=== PATIENT | female | born 1990 | race Hispanic/Latino ===

== ENCOUNTER 2017-09-03 03:00 | Emergency (ER) | payer BC, SELFPAY ==
[2017-09-03] MEDS ORDERED: Ibuprofen 800 MG TAB ONE (03:59)
[2017-09-03] MEDS ORDERED: Ondansetron HCl/PF 4 MG/2 ML Vial ONE (03:59)
[2017-09-03] MEDS ORDERED: Acetaminophen 500 MG TAB ONE (03:59)
[2017-09-03 04:36] LABS: #Lymphocytes 1.5 thou/uL (1.20-3.40); #Monocytes 0.9 thou/uL (0.11-0.59); #Neutrophils 8.7 thou/uL (1.40-6.50); %Basophils 0.3 % (0.0-1.0); %Eosinophils 0.1 % (0.0-10.0); %Lymphocytes 13.1 % (21.0-51.0); %Monocytes 7.6 % (0.0-10.0); Hematocrit 40.4 % (36.0-47.0); Mean Platelet Volume 8.5 fL (7.4-10.4); Red Blood Cell (RBC) Count 4.12 mill/uL (4.20-5.40); White Blood Cell (WBC) Count 11.1 thou/uL (4.8-10.8)
[2017-09-03 04:44] LABS: Anion Gap 11 mmol/L (10-20); BUN (Urea Nitrogen) 5 mg/dL (7.0-18.7); Calc. Creatinine Clearance 0 mL/min (70-130); Carbon Dioxide 28 mmol/L (22-29); Chloride 100 mmol/L (98-107); Estimated GFR-MDRD Greater than 90
[2017-09-03] MEDS ORDERED: Oseltamivir 75 MG CAP PO SCH (05:00)
== END 2017-09-03 05:13 | disposition home or self-care (01) ==
LOC: ERS 03:00
DX: J11.1 Influenza due to unidentified influenza virus with other respiratory manifestations (principal); E86.0 Dehydration
CPT/HCPCS: 80048; 85025; 87081; 87430; 96361; 96374; J2405

== ENCOUNTER 2018-01-06 21:02 | Emergency (ER) | payer SELFPAY ==
[2018-01-06] MEDS ORDERED: Ondansetron ODT 4 MG TAB ONE (22:57)
[2018-01-06] MEDS ORDERED: Metoclopramide HCl 10 MG TAB ONE (23:36)
[2018-01-06] MEDS ORDERED: Ketorolac Tromethamine 30 MG/ML VIAL ONE (23:36)
[2018-01-06] MEDS ORDERED: methylPREDNISolone Sod Succ/PF 125 MG/2 ML VIAL ONE (23:36)
[2018-01-07 00:06] LABS: Bilirubin Negative (Negative); Blood, Urine Small (Negative); Clarity CLOUDY (Clear); Glucose, Urine (Dipstick) Negative (Negative); Leukocyte Small (Negative); Nitrite Positive (Negative); Protein, Urine (Dipstick) Negative (Neg-Trace); Specific Gravity, Urine 1.024 (1.002-1.036); Urobilinogen 0.2 mg/dL (0.2-1.0)
[2018-01-07 00:09] LABS: Bacteria/HPF 4+ HPF (None Seen); Hyaline Casts/LPF 7-10 HYALINE CAST LPF (0-3 Hyaline); Pathc Cast-AUWi Flag 2.18 (0-2.49); RBC/HPF 0-3 HPF (0-3)
[2018-01-07 00:17] LABS: Pregnancy Test - Urine (BHCG) Negative (Negative); Pregu Control Background? CLEAR/WHITE (CLR/WHITE); Pregu Control Bar Appear? YES (CONTROL BAR); Specific Gravity 1.024 (1.002-1.036)
== END 2018-01-07 01:19 | disposition home or self-care (01) ==
LOC: ERS 21:02
DX: G43.909 Migraine, unspecified, not intractable, without status migrainosus (principal); N39.0 Urinary tract infection, site not specified
CPT/HCPCS: 81003; 81015; 81025; 96374; 96375; J1885; J2930; Q0162

== ENCOUNTER 2018-01-12 10:07 | Emergency (ER) | payer SELFPAY ==
[2018-01-12] MEDS ORDERED: Promethazine HCl 25 MG/ML VIAL ONE (11:03)
[2018-01-12] MEDS ORDERED: diphenhydrAMINE 50 MG/ML VIAL ONE (11:03)
[2018-01-12 11:37] LABS: Bilirubin Negative (Negative); Blood, Urine Negative (Negative); Clarity CLOUDY (Clear); Glucose, Urine (Dipstick) Negative (Negative); Leukocyte Trace (Negative); Nitrite Negative (Negative); Protein, Urine (Dipstick) Negative (Neg-Trace); pH, Urine 7.5 (5.0-9.0)
[2018-01-12 11:39] LABS: Bacteria/HPF Rare-Few HPF (None Seen); Hyaline Casts/LPF 4-6 HYALINE CAST LPF (0-3 Hyaline); Pathc Cast-AUWi Flag 1.16 (0-2.49); WBC/HPF 0-3 HPF (0-3)
[2018-01-12] MEDS ORDERED: Ketorolac Tromethamine 30 MG/ML VIAL ONE (12:40)
== END 2018-01-12 12:48 | disposition home or self-care (01) ==
LOC: ERS 10:07
DX: G43.909 Migraine, unspecified, not intractable, without status migrainosus (principal); Z79.899 Other long term (current) drug therapy
CPT/HCPCS: 81003; 81015; 96365; 96375; J1200; J1885; J2550

== ENCOUNTER 2018-04-25 22:16 | Emergency (ER) | payer SELFPAY ==
[2018-04-25 22:37] LABS: Pregnancy Test - Urine (BHCG) Negative (Negative); Pregu Control Background? CLEAR/WHITE (CLR/WHITE); Pregu Control Bar Appear? YES (CONTROL BAR)
[2018-04-25 22:38] LABS: Bilirubin Small (Negative); Blood, Urine Moderate (Negative); Clarity CLEAR (Clear); Glucose, Urine (Dipstick) Negative (Negative); Leukocyte Negative (Negative); Nitrite Negative (Negative); Protein, Urine (Dipstick) Negative (Neg-Trace); Specific Gravity, Urine 1.031 (1.002-1.036); pH, Urine 5.5 (5.0-9.0)
[2018-04-25 22:39] LABS: Pathc Cast-AUWi Flag 1.01 (0-2.49); Squamous Epithelial 0-3 HPF (0-3)
[2018-04-25 22:40] LABS: Specific Gravity 1.031 (1.002-1.036); Yeast-AUWi Flag 31.6 (0-25.0)
[2018-04-25 22:42] LABS: Hemoglobin 12.3 g/dL (12.0-16.0); Mean Corpuscular HGB CONC 33.5 g/dL (32.0-36.0); Mean Corpuscular Hemoglobin 32.5 pg (27.0-31.0); Mean Corpuscular Volume 96.8 fL (78.0-98.0); Mean Platelet Volume 8.3 fL (7.4-10.4); Platelet Count 211 thou/uL (130-400); RBC Distribution Width 11.2 % (11.5-14.5); Red Blood Cell (RBC) Count 3.78 mill/uL (4.20-5.40); White Blood Cell (WBC) Count 8.6 thou/uL (4.8-10.8)
[2018-04-25 22:48] LABS: Bacteria/HPF 1+ HPF (None Seen)
[2018-04-25 22:49] LABS: Hyaline Casts/LPF 0-3 HYALINE CAST LPF (0-3 Hyaline)
[2018-04-25 22:57] LABS: Band 1 % (5-11); Eosinophils 1 % (0-10); Lymphocytes 45 % (21-51); MDiff Complete? YES; Monocytes 6 % (0-10); Neutrophil 47 % (42-75); PLT Morphology Comment Appears Adequate; RBC Morphology Normal
[2018-04-25 23:00] LABS: ALT (SGPT) 12 U/L (8-55); AST (SGOT) 16 U/L (5-34); Albumin 4.3 g/dL (3.5-5.0); Alkaline Phosphatase 49 U/L (40-150); Anion Gap 11 mmol/L (10-20); BUN (Urea Nitrogen) 8 mg/dL (7.0-18.7); Bilirubin, Total 0.4 mg/dL (0.2-1.2); Calc. Creatinine Clearance 0 mL/min (70-130); Carbon Dioxide 25 mmol/L (22-29); Chloride 107 mmol/L (98-107); Estimated GFR-MDRD Greater than 90; Globulin 2.6 g/dL (2.4-3.5); Glucose 90 mg/dL (70-105); Potassium 3.4 mmol/L (3.5-5.1); Protein, Total 6.9 g/dL (6.0-8.3); Sodium 140 mmol/L (136-145)
[2018-04-26] MEDS ORDERED: Ketorolac Tromethamine 60 MG/2 ML VIAL ONE (00:43)
== END 2018-04-26 01:13 | disposition home or self-care (01) ==
LOC: ERS 22:16
DX: N39.0 Urinary tract infection, site not specified (principal)
CPT/HCPCS: 36415; 80053; 81003; 81015; 81025; 85025; 96372; J1885

== ENCOUNTER 2018-10-14 10:30 | Outpatient (CLI) | payer MEDICAID ==
--- NOTE | 2018-10-14 13:06 | ULT ---
PELVIC SONOGRAM TRANSABDOMINAL AND TRANSVAGINAL IMAGING WITH DUPLEX EVALUATION: HISTORY: Dyspareunia. FINDINGS: Urinary bladder has a normal appearance. Uterus has a homogeneous echotexture and is 7.5 cm. The en dometrium is 0.6 cm. Right ovary is 3.8 cm and left 2.7 cm. Each has a normal sonographic appearance with good color and spectral Doppler flow. No free fluid within the pelvis. IMPRESSION: Normal pelvic sonogram. POS: [facility]
== END 2018-10-14 10:31 | disposition home or self-care (01) ==
LOC: BICULT 10:30
PROVIDERS: ATTEND Nurse Practitioner Women's Health
DX: R10.2 Pelvic and perineal pain (principal)
CPT/HCPCS: 76856

== ENCOUNTER 2019-01-18 12:37 | Emergency (ER) | payer MEDICAID ==
[2019-01-18] MEDS ORDERED: Ondansetron ODT 8 MG TAB ONE (14:10)
[2019-01-18] MEDS ORDERED: Acetaminophen 325 MG TAB ONE (14:10)
[2019-01-18 14:32] LABS: Bilirubin Negative (Negative); Blood, Urine Trace (Negative); Clarity CLOUDY (Clear); Glucose, Urine (Dipstick) Negative (Negative); Leukocyte Large (Negative); Nitrite Positive (Negative); Protein, Urine (Dipstick) Negative (Neg-Trace); Specific Gravity, Urine 1.011 (1.002-1.036)
[2019-01-18 14:34] LABS: Pregnancy Test - Urine (BHCG) POSITIVE (Negative); Pregu Control Background? CLEAR/WHITE (CLR/WHITE); Pregu Control Bar Appear? YES (CONTROL BAR); Specific Gravity 1.011 (1.002-1.036)
[2019-01-18 14:35] LABS: Bacteria/HPF 2+ HPF (None Seen); Hyaline Casts/LPF 4-6 HYALINE CAST LPF (0-3 Hyaline); Pathc Cast-AUWi Flag 1.36 (0-2.49); Squamous Epithelial 0-3 HPF (0-3)
== END 2019-01-18 15:17 | disposition home or self-care (01) ==
LOC: ERS 12:37
DX: N30.00 Acute cystitis without hematuria (principal); Z32.01 Encounter for pregnancy test, result positive
CPT/HCPCS: 81003; 81015; 81025; 99283

== ENCOUNTER 2019-05-09 14:42 | Outpatient (CLI) | payer OTHER ==
--- NOTE | 2019-05-09 15:37 | ULT ---
OB ULTRASOUND: 05/09/19 HISTORY: anatomy. FINDINGS: A single live intrauterine gestational is seen with measurements corresponding to an estimated gestat ional age of 22 weeks, 0 days and MICHAEL at 09/12/19. The estimated weight measures 448 grams or 1 lb. (12th percentile by Hadlock criteria). measurements are as follows: BPD 5.30 cm 22 weeks, 1 day HC 19.51 cm 21 weeks, 6 days AC 16.75 cm 21 weeks, 6 days FL 3.58 cm 21 weeks, 5 days heart rate measures 136 beats per minute. Placenta is posteriorly located without evidence of p lacenta previa. SABRINA measures 12.8 cm. Cervical length measures 3.6 cm. A three vessel cord, cord insertion, kidneys, bladder, stomach, four chambered heart, lateral v entricles, cerebellum, spine, lips/nose, upper and lower extremities are visualized. No definite feta l anomalies are seen. IMPRESSION: Single live IUP of 22 weeks estimated gestational age and MICHAEL at 09/12/19. POS: [facility]
== END 2019-05-09 14:43 | disposition home or self-care (01) ==
LOC: BICULT 14:42
PROVIDERS: ATTEND Family Medicine
DX: Z34.82 Encounter for supervision of other normal pregnancy, second trimester (principal); Z3A.22 22 weeks gestation of pregnancy
CPT/HCPCS: 76805

== ENCOUNTER 2019-05-24 12:13 | Day surgery (SDC) | payer OTHER ==
[2019-05-24 12:56] VITALS: BMI 24.7
[2019-05-24] MEDS ORDERED: hydrALAZINE 20 MG/ML VIAL SLOW IVP PRN (14:10)
--- NOTE | 2019-05-24 15:06 | HP ---
PRIMARY OB: Mitesh Espino MD CHIEF COMPLAINT: Pelvic pain. HISTORY OF PRESENT ILLNESS: The patient is a 29-year-old, G2, P1 female with an intrauterine at 24 weeks and 5 days presenting to Labor and Delivery with a 3-week history of pelvic pain and a uterine contraction that she felt about 5 o'clock this morning. The patient reports that she has had this sharp pelvic pain now for 3 weeks. It is worse with activity and movement and rolling over in bed. She reports that yesterday she was carrying some files at work and has noted that activity made it worse. The patient denies intercourse for 2 weeks. She denies bleeding or leakage of fluid. Again, she reports that she has had a single uterine contraction this morning about 5 o'clock, making her belly really hard, but has had no other contractions that she is aware of since then. The patient has not taken any pain medication or has not had any other interventions. The patient denies fever, fall, abdominal trauma, chest pain, shortness of breath, nausea, vomiting , diarrhea, constipation, hip problems, knee problems, muscle weakness, new rashes , leakage of fluid, vaginal bleeding, or urinary urgency or frequency. PAST MEDICAL HISTORY: Migraines, last migraine was several weeks ago. Anxiety and depression. PAST SURGICAL HISTORY: Negative. ALLERGIES: NO KNOWN DRUG ALLERGIES. MEDICATIONS: vitamins. REVIEW OF SYSTEMS: Per HPI. OB LABS: Unavailable at the time of dictation. SOCIAL HISTORY: Denies drug, alcohol, or tobacco use. PHYSICAL EXAMINATION: VITAL SIGNS: Blood pressure 108/60, heart rate of 85, respiratory rate of 16, and saturating 97% on room air. GENERAL: She appears to be in no acute distress. She is alert, oriented, cooperative, and pleasant to interact with. HEAD: Normocephalic and atraumatic. LUNGS: Clear to auscultation bilaterally. HEART: She has regular rate and rhythm. ABDOMEN: Gravid and soft. She has minimal tenderness to the fundus, but has exquisite tenderness with deviation of the uterus to the right more so than the left, recreating her pain she has been experiencing at home. EXTREMITIES: Nontender and nonedematous. : Exam has been deferred. heart tracing shows the fetus is difficult to trace at 24 weeks, but in the 140s with moderate long-term variability. No decelerations visible. Tocometer is free of contractions. ASSESSMENT AND PLAN: The patient is a 29-year-old female with a 3-week history of musculoskeletal pains of . There is no evidence of labor at this time. The patient has been counseled to take two Tylenol 3 times a day. To attempt to find a support for her belly, this may give her desired comfort, soaking in a deep tub may also allow her to get some comfort or in a pool. Fetus is reassuring for gestational age. She has an appointment next week with Dr. Espino. We have encouraged that she keep. Job ID: [id number] [facility]
== END 2019-05-24 14:00 | disposition home or self-care (01) ==
LOC: L&D/OP 12:13
PROVIDERS: ATTEND Family Medicine
DX: O26.892 Other specified pregnancy related conditions, second trimester (principal); R10.2 Pelvic and perineal pain; O99.352 Diseases of the nervous system complicating pregnancy, second trimester; G43.909 Migraine, unspecified, not intractable, without status migrainosus; Z3A.24 24 weeks gestation of pregnancy
CPT/HCPCS: 99282

== ENCOUNTER 2019-09-03 18:00 | Inpatient (IN) | payer OTHER ==
[~2019-09-03 18:00] MED LIST: Bupivacaine 0.25% HCL 30 ML VIAL ONE; Bupivacaine HCl 0.5%/Epinephrine 1:200,000/PF 30 ml Vial ONE; Terbutaline Sulfate 1 MG/ML VIAL ONE
[2019-09-03 18:32] VITALS: BMI 27.8
[2019-09-03] MEDS ORDERED: Ibuprofen 800 MG TAB PO PRN (18:33)
[2019-09-03] MEDS ORDERED: Promethazine HCl 25 MG/ML VIAL IM PRN (18:33)
[2019-09-03] MEDS ORDERED: Carboprost 250 MCG/ML AMP IM PRN (18:33)
[2019-09-03] MEDS ORDERED: Misoprostol 200 MCG TAB PR PRN (18:33)
[2019-09-03] MEDS ORDERED: Methylergonovine 0.2 MG/ML VIAL IM PRN (18:33)
[2019-09-03] MEDS ORDERED: HYDROcodone/Acetaminophen 5/325 mg Tablet PO PRN (18:33)
[2019-09-03] MEDS ORDERED: Diphenoxylate HCl/Atropine Tablet PO PRN (18:33)
[2019-09-03] MEDS ORDERED: hydrALAZINE 20 MG/ML VIAL SLOW IVP PRN (18:33)
[2019-09-03] MEDS ORDERED: Ondansetron PF 4 MG/2 ML Vial IVP PRN (18:33)
[2019-09-03] MEDS ORDERED: NS w/ Oxytocin 10 units 500 ML IV SCH ×2 (18:33)
[2019-09-03] MEDS ORDERED: NS / Oxytocin 40 units/1000ml 1,000 ML IV PRN (18:33)
[2019-09-03 19:40] LABS: Hemoglobin 10.1 g/dL (12.0-16.0); Mean Corpuscular HGB CONC 33.5 g/dL (32.0-36.0); Mean Corpuscular Hemoglobin 27.2 pg (27.0-31.0); Mean Corpuscular Volume 81.1 fL (78.0-98.0); Mean Platelet Volume 9.8 fL (7.4-10.4); Platelet Count 223 thou/uL (130-400); RBC Distribution Width 14.4 % (11.5-14.5); White Blood Cell (WBC) Count 10.3 thou/uL (4.8-10.8)
[2019-09-03] MEDS: Misoprostol 100 MCG TAB PO SCH (19:41)
[2019-09-03] MEDS: Lactated Ringer's 1,000 ML IV SCH (19:43)
[2019-09-03 20:20] LABS: HBSAg Index 0.19 S/CO (0-0.99); Hep B Surf Ag Non-Reactive S/CO (NonReactive); Syphilis Antibody Nonreactive (Nonreactive); Syphilis Antibody Index 0.04 S/CO (<1.00 Non-Reactive)
[2019-09-03] MEDS ORDERED: Penicillin G Potassium 5 MILL.UNITS in Sodium Chloride 0.9% 100 ML IVPB SCH (22:30)
[2019-09-03] MEDS ORDERED: Ampicillin 2 GM in Sodium Chloride 0.9% 100 ML IVPB SCH (22:30)
[2019-09-03] MEDS ORDERED: hydrOXYzine Pamoate 25 mg Capsule PO SCH (22:30)
[2019-09-04] MEDS ORDERED: Penicillin G Potassium 5 MILL.UNITS VIAL ONE (00:03)
[2019-09-04] MEDS: Misoprostol 100 MCG TAB PO SCH ×3 (01:14→21:36)
[2019-09-04] MEDS: Butorphanol Tartrate 1 MG/ML VIAL SLOW IVP PRN ×2 (02:03→07:02)
[2019-09-04] MEDS ORDERED: Penicillin G 2.5 MILL.units 50 ML ONE ×2 (05:01→08:52)
[2019-09-04] MEDS: Lactated Ringer's 1,000 ML IV SCH ×2 (05:08→08:45)
[2019-09-04] MEDS ORDERED: diphenhydrAMINE 50 MG/ML VIAL IVP PRN (08:44)
[2019-09-04] MEDS ORDERED: Naloxone HCl 0.4 mg/ml Vial IVP PRN ×2 (08:44)
[2019-09-04] MEDS ORDERED: Ondansetron PF 4 MG/2 ML Vial IVP PRN ×2 (08:44→11:34)
[2019-09-04] MEDS ORDERED: ePHEDrine/0.9% NaCl/PF SYRINGE 50 mg/10 ml SLOW IVP PRN (08:44)
[2019-09-04] MEDS ORDERED: Lactated Ringer's 500 ML IV PRN (08:44)
[2019-09-04] MEDS ORDERED: Acetaminophen 325 MG TAB PO PRN (08:44)
[2019-09-04] MEDS ORDERED: Promethazine HCl 25 MG/ML VIAL IM PRN ×2 (08:44→11:34)
[2019-09-04] MEDS ORDERED: Communication Order-Pharmacy FS PRN (08:45)
[2019-09-04] MEDS ORDERED: Fentanyl 4 mcg/Bupivacaine 0.1% Cassette 100 ML EPIDURAL SCH (08:45)
[2019-09-04] MEDS: Penicillin G Potassium 2.5 MILL.UNITS in Sodium Chloride 0.9% 50 ML IVPB SCH ×2 (08:56→21:38)
[2019-09-04] MEDS ORDERED: FLU VACC QS2019-20(6MOS UP)/PF 60 MCG/0.5 ML SYRINGE IM ONE (09:00)
[2019-09-04] MEDS ORDERED: Lidocaine 1% (PF) 30 ML VIAL ONE (09:10)
[2019-09-04] MEDS ORDERED: Misoprostol 200 MCG TAB ONE (09:10)
[2019-09-04] MEDS ORDERED: Fentanyl 4 mcg/Bup 0.1% Cadd 100 ML ONE (10:47)
[2019-09-04] MEDS: AMPicillin 1 GM in Sodium Chloride 0.9% 100 ML IVPB SCH (11:13)
[2019-09-04] MEDS ORDERED: diphenhydrAMINE 25 MG CAP PO PRN (11:34)
[2019-09-04] MEDS ORDERED: Bisacodyl 10 MG SUPP PR PRN (11:34)
[2019-09-04] MEDS ORDERED: HYDROcodone/Acetaminophen 5/325 mg Tablet PO PRN ×2 (11:34)
[2019-09-04] MEDS ORDERED: NS / Oxytocin 40 units/1000ml 1,000 ML IV SCH (11:34)
[2019-09-04] MEDS ORDERED: Benzocaine-Menthol 82.5 ML CAN TOP PRN (11:34)
[2019-09-04] MEDS ORDERED: Milk Of Magnesia 30 ML UDCUP PO PRN (11:34)
[2019-09-04] MEDS ORDERED: hydrALAZINE 20 MG/ML VIAL SLOW IVP PRN (11:34)
[2019-09-04] MEDS: Ibuprofen 800 MG TAB PO SCH ×2 (14:31→22:01)
[2019-09-04] MEDS: Ferrous Sulfate 325 MG TAB PO SCH (16:14)
[2019-09-04] MEDS: Docusate Calcium (SURFAK) 240 MG CAP PO SCH (20:35)
[2019-09-05 05:46] LABS: Hemoglobin 8.8 g/dL (12.0-16.0); Mean Corpuscular HGB CONC 32.5 g/dL (32.0-36.0); Mean Corpuscular Hemoglobin 27.1 pg (27.0-31.0); Mean Corpuscular Volume 83.5 fL (78.0-98.0); Mean Platelet Volume 9.8 fL (7.4-10.4); Platelet Count 178 thou/uL (130-400); RBC Distribution Width 14.2 % (11.5-14.5); Red Blood Cell (RBC) Count 3.23 mill/uL (4.20-5.40); White Blood Cell (WBC) Count 11.6 thou/uL (4.8-10.8)
[2019-09-05] MEDS: Ibuprofen 800 MG TAB PO SCH (05:55)
[2019-09-05] MEDS: Docusate Calcium (SURFAK) 240 MG CAP PO SCH (08:35)
[2019-09-05] MEDS: Ferrous Sulfate 325 MG TAB PO SCH (08:35)
[2019-09-05] MEDS ORDERED: Prenatal Vitamin 1 TAB PO SCH (09:00)
[2019-09-05 11:03] VITALS: BP 129/59; TEMP 98.4
[2019-09-05] MEDS ORDERED: Adacel (T-DAP) 0.5 ML SYRINGE IM ONE (11:34)
== END 2019-09-05 13:50 | disposition home or self-care (01) | DRG 807 ==
LOC: L&D 18:00 → EEVIPCON 18:00 → 3SW 09-04 12:13
PROVIDERS: ADMIT Family Medicine; ATTEND Family Medicine
PROC: 10907ZC Drainage of Amniotic Fluid, Therapeutic from Products of Conception, Via Natural or Artificial Opening (ICD-10-PCS; 2019-09-03)
PROC: 3E0P7VZ Introduction of Hormone into Female Reproductive, Via Natural or Artificial Opening (ICD-10-PCS; 2019-09-03)
PROC: 10E0XZZ Delivery of Products of Conception, External Approach (ICD-10-PCS; principal; 2019-09-04)
PROC: 0HQ9XZZ Repair Perineum Skin, External Approach (ICD-10-PCS; 2019-09-04)
DX: O99.824 Streptococcus B carrier state complicating childbirth (principal); Z3A.39 39 weeks gestation of pregnancy; Z37.0 Single live birth; Z28.82 Immunization not carried out because of caregiver refusal; O70.0 First degree perineal laceration during delivery
CPT/HCPCS: 36415; 36416; 51702; 85027; 86780; 86850; 86900; 86901; 87340; J0595; J0670; J2001; J2540; J2590; J3105; J3490; Q0177; S0020

== ENCOUNTER 2019-09-15 16:44 | Emergency (ER) | payer OTHER ==
[2019-09-15] MEDS ORDERED: Acetaminophen 500 MG TAB ONE (18:51)
[2019-09-15] MEDS ORDERED: cefTRIAXone\\ROCEPHIN 1 GM VIAL ONE (18:52)
[2019-09-15] MEDS ORDERED: Ondansetron PF 4 MG/2 ML Vial ONE (18:52)
[2019-09-15] MEDS ORDERED: Sodium Chloride 0.9% 100 ML ONE (18:52)
[2019-09-15] MEDS ORDERED: Ketorolac Tromethamine 30 MG/ML VIAL ONE (18:52)
[2019-09-15 19:02] LABS: #Lymphocytes 2.1 thou/uL (1.20-3.40); #Monocytes 0.4 thou/uL (0.11-0.59); #Neutrophils 5.2 thou/uL (1.40-6.50); %Basophils 0.5 % (0.0-1.0); %Eosinophils 0.3 % (0.0-10.0); %Lymphocytes 26.8 % (21.0-51.0); %Monocytes 5.2 % (0.0-10.0); %Neutrophils 67.1 % (42.0-75.0); Hemoglobin 13.1 g/dL (12.0-16.0); Mean Corpuscular HGB CONC 32.5 g/dL (32.0-36.0); Mean Corpuscular Hemoglobin 26.9 pg (27.0-31.0); Platelet Count 297 thou/uL (130-400); RBC Distribution Width 15.6 % (11.5-14.5); Red Blood Cell (RBC) Count 4.87 mill/uL (4.20-5.40); White Blood Cell (WBC) Count 7.7 thou/uL (4.8-10.8)
[2019-09-15 19:23] LABS: ALT (SGPT) 29 U/L (8-55); AST (SGOT) 22 U/L (5-34); Alkaline Phosphatase 125 U/L (40-110); Anion Gap 13 mmol/L (10-20); BUN (Urea Nitrogen) 7 mg/dL (7.0-18.7); Bilirubin, Total 0.4 mg/dL (0.2-1.2); Calc. Creatinine Clearance 0 mL/min (70-130); Calcium 8.9 mg/dL (7.8-10.44); Carbon Dioxide 27 mmol/L (22-29); Chloride 103 mmol/L (98-107); Estimated GFR-MDRD Greater than 90; Globulin 3.7 g/dL (2.4-3.5); Glucose 95 mg/dL (70-105); Potassium 3.7 mmol/L (3.5-5.1); Protein, Total 7.7 g/dL (6.0-8.3); Sodium 139 mmol/L (136-145)
[2019-09-15] MEDS ORDERED: metroNIDAZOLE 250 MG TAB ONE (19:51)
[2019-09-15] MEDS ORDERED: Clindamycin/D5W 600 mg/50 ml Premix Bag ONE (19:51)
[2019-09-15] MEDS ORDERED: Clindamycin 150 MG CAP ONE (19:53)
[2019-09-15 20:13] LABS: Bacteria/HPF 1+ HPF (None Seen); Bilirubin Negative (Negative); Blood, Urine 3+ (Negative); Clarity Turbid (Clear); Glucose, Urine (Dipstick) Normal (Negative); Leukocyte 500 Leu/uL (Negative); Nitrite Negative (Negative); Protein, Urine (Dipstick) 30 mg/dL (Neg-Trace); Urobilinogen Normal mg/dL (Less than 2); WBC/HPF Greater than 50 HPF (0-3)
--- NOTE | 2019-09-15 20:22 | ULT ---
PELVIC ULTRASOUND: 09/15/19 HISTORY: x10 days with fever. Real time imaging of the pelvis was obtained transabdominally. This shows a appearance to the uterus. It measures 12.6 cm in length. There is some fluid within the endometrium measuring 7 mm in thickness. I do not see any retained products of conception. The right and left ovaries are both difficult to visualize but appear unremarkable. DOPPLER EVALUATION WITH SPECTRAL ANALYSIS: Normal flow is shown to the adnexal regions. No free fluid demonstrated. IMPRESSION: appearance of the uterus. Fluid within the endometrial cavity is noted. I do not appreciat e any retained products of conception. POS: [facility]
== END 2019-09-15 20:28 | disposition home or self-care (01) ==
LOC: ERS 16:44
DX: O86.12 Endometritis following delivery (principal)
CPT/HCPCS: 36415; 76856; 80053; 81003; 81015; 83605; 85025; 87040; 87804; 96365; 96375; J0696; J1885; J2405; J3490

== ENCOUNTER 2020-03-24 08:52 | Emergency (ER) | payer OTHER ==
[2020-03-25 11:41] LABS: SARS-CoV-2 MS2 Positive; SARS-CoV-2 N Gene Negative; SARS-CoV-2 S Gene Negative; SARS-CoV-2 orf1ab Negative
== END 2020-03-24 09:40 | disposition home or self-care (01) ==
LOC: ERS 08:52
DX: Z20.828 Contact with and (suspected) exposure to other viral communicable diseases (principal); Z79.899 Other long term (current) drug therapy; Z3A.23 23 weeks gestation of pregnancy
CPT/HCPCS: 87635; 99283; U0003

== ENCOUNTER 2020-04-10 13:04 | Emergency (ER) | payer OTHER ==
[2020-04-11 14:02] LABS: SARS-CoV-2 MS2 Positive; SARS-CoV-2 N Gene Negative; SARS-CoV-2 S Gene Negative; SARS-CoV-2 by NAA Not Detected (NotDetected); SARS-CoV-2 orf1ab Negative
== END 2020-04-10 13:35 | disposition home or self-care (01) ==
LOC: ERS 13:04
DX: O99.519 Diseases of the respiratory system complicating pregnancy, unspecified trimester (principal); J02.9 Acute pharyngitis, unspecified; Z20.828 Contact with and (suspected) exposure to other viral communicable diseases; Z3A.00 Weeks of gestation of pregnancy not specified
CPT/HCPCS: 87635; 99283; U0003

== ENCOUNTER 2020-07-08 08:11 | Outpatient (CLI) | payer OTHER ==
[2020-07-08 16:35] LABS: SARS-CoV-2 MS2 Positive; SARS-CoV-2 N Gene Negative; SARS-CoV-2 S Gene Negative; SARS-CoV-2 by NAA Not Detected (NotDetected); SARS-CoV-2 orf1ab Negative
== END 2020-07-08 08:12 | disposition home or self-care (01) ==
LOC: LABBT 08:11
PROVIDERS: ATTEND Family Medicine
DX: Z20.828 Contact with and (suspected) exposure to other viral communicable diseases (principal)
CPT/HCPCS: 87635; U0003

== ENCOUNTER 2020-07-10 19:30 | Inpatient (IN) | payer OTHER ==
[2020-07-10 20:38] VITALS: BMI 27.8
[2020-07-10] MEDS ORDERED: Misoprostol 200 MCG TAB PR PRN (20:56)
[2020-07-10] MEDS ORDERED: Carboprost 250 MCG/ML AMP IM PRN (20:56)
[2020-07-10] MEDS ORDERED: Ondansetron PF 4 MG/2 ML Vial IVP PRN (20:56)
[2020-07-10] MEDS ORDERED: Lidocaine 1% (PF) 30 ML VIAL SC PRN (20:56)
[2020-07-10] MEDS ORDERED: Promethazine HCl 25 MG/ML VIAL IM PRN (20:56)
[2020-07-10] MEDS ORDERED: NS / Oxytocin 40 units/1000ml 1,000 ML IV PRN (20:56)
[2020-07-10] MEDS ORDERED: HYDROcodone/Acetaminophen 5/325 mg Tablet PO PRN (20:56)
[2020-07-10] MEDS ORDERED: Ibuprofen 800 MG TAB PO PRN (20:56)
[2020-07-10] MEDS ORDERED: hydrALAZINE 20 MG/ML VIAL SLOW IVP PRN (20:56)
[2020-07-10] MEDS ORDERED: Butorphanol Tartrate 1 MG/ML VIAL SLOW IVP PRN (20:56)
[2020-07-10] MEDS ORDERED: Methylergonovine 0.2 MG/ML VIAL IM PRN (20:56)
[2020-07-10] MEDS ORDERED: Diphenoxylate HCl/Atropine Tablet PO PRN (20:56)
[2020-07-10] MEDS ORDERED: NS w/ Oxytocin 10 units 500 ML IV SCH ×2 (21:00)
[2020-07-10 21:49] LABS: Hemoglobin 9.4 g/dL (12.0-16.0); Mean Corpuscular HGB CONC 32.9 g/dL (32.0-36.0); Mean Corpuscular Volume 75.8 fL (78.0-98.0); Mean Platelet Volume 10.5 fL (7.4-10.4); Platelet Count 220 thou/uL (130-400); RBC Distribution Width 16.1 % (11.5-14.5); Red Blood Cell (RBC) Count 3.76 mill/uL (4.20-5.40); White Blood Cell (WBC) Count 9.9 thou/uL (4.8-10.8)
[2020-07-10 22:25] LABS: Syphilis Antibody Nonreactive (Nonreactive); Syphilis Antibody Index 0.05 S/CO (<1.00 Non-Reactive)
[2020-07-10 23:42] LABS: Hep B Surf Ag Non-Reactive S/CO (NonReactive)
[2020-07-11] MEDS: Lactated Ringer's 1,000 ML IV SCH ×3 (06:14→16:33)
[2020-07-11] MEDS ORDERED: Fentanyl 4 mcg/Bup 0.1% Cadd 100 ML ONE (07:44)
[2020-07-11] MEDS ORDERED: Ondansetron PF 4 MG/2 ML Vial IVP PRN ×2 (09:14→13:45)
[2020-07-11] MEDS ORDERED: EPHEDRINE 25 MG/5 ML SYRINGE SLOW IVP PRN (09:14)
[2020-07-11] MEDS ORDERED: diphenhydrAMINE 50 MG/ML VIAL IVP PRN (09:14)
[2020-07-11] MEDS ORDERED: Naloxone HCl 0.4 mg/ml Vial IVP PRN ×2 (09:14)
[2020-07-11] MEDS ORDERED: Lactated Ringer's 500 ML IV PRN (09:14)
[2020-07-11] MEDS ORDERED: Promethazine HCl 25 MG/ML VIAL IM PRN (09:14)
[2020-07-11] MEDS ORDERED: Acetaminophen 325 MG TAB PO PRN (09:14)
[2020-07-11] MEDS ORDERED: Communication Order-Pharmacy FS SCH (09:15)
[2020-07-11] MEDS ORDERED: Fentanyl 4 mcg/Bupivacaine 0.1% Cassette 100 ML EPIDURAL SCH (09:15)
[2020-07-11] MEDS ORDERED: Adacel (T-DAP) 0.5 ML SYRINGE IM ONE (13:45)
[2020-07-11] MEDS ORDERED: hydrALAZINE 20 MG/ML VIAL SLOW IVP PRN (13:45)
[2020-07-11] MEDS ORDERED: Bisacodyl 10 MG SUPP PR PRN (13:45)
[2020-07-11] MEDS ORDERED: HYDROcodone/Acetaminophen 5/325 mg Tablet PO PRN (13:45)
[2020-07-11] MEDS ORDERED: NS / Oxytocin 40 units/1000ml 1,000 ML IV SCH (13:45)
[2020-07-11] MEDS ORDERED: diphenhydrAMINE 25 MG CAP PO PRN (13:45)
[2020-07-11] MEDS ORDERED: Benzocaine-Menthol 82.5 ML CAN TOP PRN (13:45)
[2020-07-11] MEDS ORDERED: Milk Of Magnesia 30 ML UDCUP PO PRN (13:45)
[2020-07-11] MEDS: Ibuprofen 800 MG TAB PO SCH (16:43)
[2020-07-11] MEDS: Ferrous Sulfate 325 MG TAB PO SCH (17:09)
[2020-07-11] MEDS: HYDROcodone/Acetaminophen 5/325 mg Tablet PO PRN (21:17)
[2020-07-11] MEDS: Docusate Calcium (SURFAK) 240 MG CAP PO SCH (21:19)
[2020-07-12] MEDS: Ibuprofen 800 MG TAB PO SCH ×3 (00:16→13:43)
[2020-07-12] MEDS: HYDROcodone/Acetaminophen 5/325 mg Tablet PO PRN (08:01)
[2020-07-12] MEDS ORDERED: Prenatal Vitamin 1 TAB PO SCH (09:00)
[2020-07-12] MEDS: Ferrous Sulfate 325 MG TAB PO SCH (09:34)
[2020-07-12] MEDS: Docusate Calcium (SURFAK) 240 MG CAP PO SCH (09:34)
[2020-07-12 11:38] VITALS: BP 107/58; TEMP 98.2
== END 2020-07-12 16:35 | disposition home or self-care (01) | DRG 807 ==
LOC: L&D 20:02 → 3SW 07-11 14:45
PROVIDERS: ADMIT Family Medicine; ATTEND Family Medicine
PROC: 10907ZC Drainage of Amniotic Fluid, Therapeutic from Products of Conception, Via Natural or Artificial Opening (ICD-10-PCS; 2020-07-10)
PROC: 3E0P7VZ Introduction of Hormone into Female Reproductive, Via Natural or Artificial Opening (ICD-10-PCS; 2020-07-10)
PROC: 10E0XZZ Delivery of Products of Conception, External Approach (ICD-10-PCS; principal; 2020-07-11)
PROC: 0HQ9XZZ Repair Perineum Skin, External Approach (ICD-10-PCS; 2020-07-11)
DX: O69.81X0 Labor and delivery complicated by cord around neck, without compression, not applicable or unspecified (principal); Z37.0 Single live birth; Z3A.39 39 weeks gestation of pregnancy; Z20.828 Contact with and (suspected) exposure to other viral communicable diseases; O70.0 First degree perineal laceration during delivery
CPT/HCPCS: 36415; 51702; 85027; 86780; 86850; 86900; 86901; 87340; J1200; J2590

== ENCOUNTER 2020-07-31 16:53 | Emergency (ER) | payer OTHER ==
[2020-07-31] MEDS ORDERED: Morphine 4 MG/ML VIAL ONE (17:45)
[2020-07-31 18:11] LABS: #Basophils 0.1 thou/uL (0.0-0.2); #Eosinphils 0.2 thou/uL (0.0-0.7); #Lymphocytes 3.5 thou/uL (1.20-3.40); #Monocytes 0.5 thou/uL (0.11-0.59); #Neutrophils 5.4 thou/uL (1.40-6.50); %Basophils 0.7 % (0.0-1.0); %Eosinophils 2.6 % (0.0-10.0); %Lymphocytes 36.4 % (21.0-51.0); %Monocytes 4.7 % (0.0-10.0); %Neutrophils 55.7 % (42.0-75.0); Hemoglobin 11.9 g/dL (12.0-16.0); Mean Corpuscular HGB CONC 31.3 g/dL (32.0-36.0); Mean Corpuscular Hemoglobin 25.3 pg (27.0-31.0); Mean Corpuscular Volume 80.9 fL (78.0-98.0); Mean Platelet Volume 9.6 fL (7.4-10.4); Platelet Count 302 thou/uL (130-400); RBC Distribution Width 19.1 % (11.5-14.5); Red Blood Cell (RBC) Count 4.72 mill/uL (4.20-5.40); White Blood Cell (WBC) Count 9.6 thou/uL (4.8-10.8)
[2020-07-31 18:19] LABS: Bacteria/HPF None Seen HPF (None Seen); Bilirubin Negative (Negative); Blood, Urine 1+ (Negative); Clarity Turbid (Clear); Glucose, Urine (Dipstick) Normal (Negative); Ketone, Urine Negative (Negative); Leukocyte 250 Leu/uL (Negative); Mucous/LPF 2+ LPF (<2+); Nitrite Negative (Negative); Protein, Urine (Dipstick) 30 mg/dL (Neg-Trace); Specific Gravity, Urine 1.035 (1.002-1.036); Urobilinogen Normal mg/dL (Less than 2); pH, Urine 5.5 (5.0-9.0)
[2020-07-31 18:34] LABS: ALT (SGPT) 32 U/L (8-55); AST (SGOT) 24 U/L (5-34); Albumin 3.7 g/dL (3.5-5.0); Alkaline Phosphatase 112 U/L (40-110); Anion Gap 13 mmol/L (10-20); BUN (Urea Nitrogen) 12 mg/dL (7.0-18.7); Bilirubin, Total 0.3 mg/dL (0.2-1.2); Calc. Creatinine Clearance 0 mL/min (70-130); Calcium 8.7 mg/dL (7.8-10.44); Carbon Dioxide 27 mmol/L (22-29); Chloride 105 mmol/L (98-107); Estimated GFR-MDRD Greater than 90; Globulin 3.2 g/dL (2.4-3.5); Glucose 81 mg/dL (70-105); Potassium 3.6 mmol/L (3.5-5.1); Protein, Total 6.9 g/dL (6.0-8.3); Sodium 141 mmol/L (136-145)
--- NOTE | 2020-07-31 18:48 | ULT ---
ULTRASOUND PELVIC DOPPLER DUPLEX: DATE: 07/31/2020 HISTORY: 50-year-old female with post pelvic pain TECHNIQUE: Transabdominal transducer used to visualize intrapelvic contents with grayscale, color-flow, and spec tral analysis. No transvaginal ultrasound performed. FINDINGS: Uterus:11 x 6 x 8.5 cm.. Endometrial stripe: Difficult to distinguish from adjacent myometrium. Tiny amount of free fluid with in endometrial cavity.. Right ovary:3.2 x 4 x 1.8 cm.. Left ovary:3 x 4.3 x 2.8 cm.. Uterine leiomyoma (fibroid):None Blood flow in ovaries:Bilaterally demonstrated Ovarian cyst:None Free fluid in the cul-de-sac:None Hematoma: None visualized IMPRESSION: 1) enlarged uterus, as expected for recent status. 2) no pathology identified
== END 2020-07-31 21:01 | disposition home or self-care (01) ==
LOC: ERS 16:53
DX: R10.2 Pelvic and perineal pain (principal)
CPT/HCPCS: 36415; 76856; 80053; 81003; 81015; 83605; 85025; 87480; 87510; 87660; 93976; 96374; J2270

== ENCOUNTER 2021-06-25 21:03 | Emergency (ER) | payer OTHER ==
[2021-06-25] MEDS ORDERED: Acetaminophen 500 MG TAB ONE (22:31)
[2021-06-25] MEDS ORDERED: diphenhydrAMINE 50 MG/ML VIAL ONE (22:32)
[2021-06-25] MEDS ORDERED: Metoclopramide HCl 10 MG/2 ML VIAL ONE (22:32)
[2021-06-25] MEDS ORDERED: Ketorolac Tromethamine 30 MG/ML VIAL ONE (22:32)
[2021-06-25 23:57] LABS: #Basophils 0.1 thou/uL (0.0-0.2); #Eosinphils 0.1 thou/uL (0.0-0.7); #Lymphocytes 3.8 thou/uL (1.20-3.40); #Monocytes 0.7 thou/uL (0.11-0.59); #Neutrophils 6.7 thou/uL (1.40-6.50); %Basophils 0.7 % (0.0-1.0); %Eosinophils 0.7 % (0.0-10.0); %Lymphocytes 33.2 % (21.0-51.0); %Monocytes 6.1 % (0.0-10.0); %Neutrophils 59.2 % (42.0-75.0); Hemoglobin 12.1 g/dL (12.0-16.0); Mean Corpuscular HGB CONC 34.8 g/dL (32.0-36.0); Mean Corpuscular Hemoglobin 30.6 pg (27.0-31.0); Mean Corpuscular Volume 87.9 fL (78.0-98.0); Mean Platelet Volume 8.7 fL (7.4-10.4); Platelet Count 236 thou/uL (130-400); Red Blood Cell (RBC) Count 3.94 mill/uL (4.20-5.40); White Blood Cell (WBC) Count 11.3 thou/uL (4.8-10.8)
[2021-06-25 23:58] LABS: Bilirubin Negative (Negative); Blood, Urine Negative (Negative); Clarity Clear (Clear); Glucose, Urine (Dipstick) Normal (Negative); Ketone, Urine 10 mg/dL (Negative); Leukocyte Negative Leu/uL (Negative); Nitrite Negative (Negative); Protein, Urine (Dipstick) Negative (Neg-Trace); Specific Gravity, Urine 1.014 (1.002-1.036); Urobilinogen Normal mg/dL (Less than 2); pH, Urine 7.5 (5.0-9.0)
[2021-06-25 23:59] LABS: Pregnancy Test - Urine (BHCG) Negative (Negative); Pregu Control Background? CLEAR/WHITE (CLR/WHITE); Pregu Control Bar Appear? YES (CONTROL BAR)
[2021-06-26] LABS: Specific Gravity 1.014 (1.002-1.036)
[2021-06-26 00:06] LABS: Amphetamine Not Detected (NotDetected); Barbiturates Screen Not Detected (NotDetected); Benzodiazepine Screen Not Detected (NotDetected); Cocaine Metabolite Screen Not Detected (NotDetected); Methadone Not Detected (NotDetected); Methamphetamine Not Detected (NotDetected); Opiate Screen Not Detected (NotDetected); Oxycodone Screen Not Detected (NotDetected); Phencyclidine (PCP) Not Detected (NotDetected); THC/Cannabinoid Screen Detected (NotDetected); Tricyclic Screen Not Detected (NotDetected)
[2021-06-26 00:19] LABS: ALT (SGPT) 17 U/L (8-55); AST (SGOT) 15 U/L (5-34); Albumin 3.3 g/dL (3.5-5.0); Alkaline Phosphatase 79 U/L (40-110); Anion Gap 9 mmol/L (10-20); BUN (Urea Nitrogen) 5 mg/dL (7.0-18.7); Bilirubin, Total 0.3 mg/dL (0.2-1.2); Calc. Creatinine Clearance 0 mL/min (70-130); Calcium 8.1 mg/dL (7.8-10.44); Carbon Dioxide 23 mmol/L (22-29); Chloride 110 mmol/L (98-107); Globulin 2.5 g/dL (2.4-3.5); Glucose 109 mg/dL (70-105); Potassium 3.7 mmol/L (3.5-5.1); Protein, Total 5.8 g/dL (6.0-8.3); Sodium 138 mmol/L (136-145)
== END 2021-06-26 02:09 | disposition home or self-care (01) ==
LOC: ERS 21:03
DX: G43.909 Migraine, unspecified, not intractable, without status migrainosus (principal); E05.90 Thyrotoxicosis, unspecified without thyrotoxic crisis or storm
CPT/HCPCS: 80053; 80306; 81003; 81025; 83605; 84443; 85025; J1200; J1885; J2765

== ENCOUNTER 2021-06-26 10:12 | Inpatient (IN) | payer OTHER ==
[2021-06-26] MEDS ORDERED: cefTRIAXone\\ROCEPHIN 2 GM VIAL ONE (10:28)
[2021-06-26 10:44] LABS: #Lymphocytes 2.3 thou/uL (1.20-3.40); #Monocytes 0.3 thou/uL (0.11-0.59); #Neutrophils 7.6 thou/uL (1.40-6.50); %Basophils 0.1 % (0.0-1.0); %Eosinophils 0.3 % (0.0-10.0); %Lymphocytes 22.3 % (21.0-51.0); %Monocytes 3.2 % (0.0-10.0); %Neutrophils 74.2 % (42.0-75.0); Hemoglobin 13.2 g/dL (12.0-16.0); Mean Corpuscular HGB CONC 33.7 g/dL (32.0-36.0); Mean Corpuscular Volume 89.1 fL (78.0-98.0); Mean Platelet Volume 8.7 fL (7.4-10.4); Platelet Count 211 thou/uL (130-400); RBC Distribution Width 11.9 % (11.5-14.5); White Blood Cell (WBC) Count 10.3 thou/uL (4.8-10.8)
[2021-06-26 10:55] LABS: INR-International Normal Ratio 1.1; Prothrombin Time 14.6 sec (12.0-14.7)
[2021-06-26 11:16] LABS: ALT (SGPT) 20 U/L (8-55); AST (SGOT) 16 U/L (5-34); Albumin 3.5 g/dL (3.5-5.0); Alkaline Phosphatase 80 U/L (40-110); Anion Gap 10 mmol/L (10-20); BUN (Urea Nitrogen) Less than 4 mg/dL (7.0-18.7); Bilirubin, Total 0.8 mg/dL (0.2-1.2); Calc. Creatinine Clearance 0 mL/min (70-130); Calcium 8.5 mg/dL (7.8-10.44); Carbon Dioxide 22 mmol/L (22-29); Chloride 107 mmol/L (98-107); Globulin 3.1 g/dL (2.4-3.5); Glucose 96 mg/dL (70-105); Potassium 3.3 mmol/L (3.5-5.1); Protein, Total 6.6 g/dL (6.0-8.3); Sodium 136 mmol/L (136-145)
[2021-06-26 11:22] LABS: Bilirubin Negative (Negative); Blood, Urine Negative (Negative); Clarity Clear (Clear); Glucose, Urine (Dipstick) Normal (Negative); Ketone, Urine 40 mg/dL (Negative); Leukocyte Negative Leu/uL (Negative); Nitrite Negative (Negative); Protein, Urine (Dipstick) Negative (Neg-Trace); Specific Gravity, Urine 1.013 (1.002-1.036); Urobilinogen Normal mg/dL (Less than 2)
[2021-06-26 11:23] LABS: Thyroid Stimulating Hormone Less than 0.0025 uIU/mL (0.35-4.94)
[2021-06-26 12:11] LABS: SARS-CoV-2 NAA Rapid Test Not Detected (NotDetected)
[2021-06-26] MEDS ORDERED: Ondansetron PF 4 MG/2 ML Vial IVP PRN (13:17)
[2021-06-26] MEDS ORDERED: Enoxaparin Sodium 40 MG/0.4 ML SYRINGE SC SCH (13:30)
[2021-06-26] MEDS ORDERED: Propranolol 60 MG TAB PO SCH (13:45)
[2021-06-26] MEDS ORDERED: Metoprolol Tartrate 5 MG/5 ML VIAL IVP PRN (13:56)
[2021-06-26] MEDS ORDERED: Amoxicillin/Potassium Clav 875 MG TAB PO SCH (14:00)
[2021-06-26] MEDS ORDERED: Potassium Chloride 20 MEQ TAB PO SCH (14:15)
[2021-06-26 15:03] LABS: Amphetamine Not Detected (NotDetected); Barbiturates Screen Not Detected (NotDetected); Benzodiazepine Screen Not Detected (NotDetected); Cocaine Metabolite Screen Not Detected (NotDetected); Methadone Not Detected (NotDetected); Methamphetamine Not Detected (NotDetected); Opiate Screen Not Detected (NotDetected); Oxycodone Screen Not Detected (NotDetected); Phencyclidine (PCP) Not Detected (NotDetected); THC/Cannabinoid Screen Not Detected (NotDetected); Tricyclic Screen Not Detected (NotDetected)
[2021-06-26] MEDS: Sodium Chloride 0.9% 1,000 ML IV SCH (15:32)
[2021-06-26] MEDS: Hydrocortisone Sod Succ/PF 100 mg/2 ml Vial IVP SCH ×2 (15:40→21:37)
[2021-06-26] MEDS: Acetaminophen 325 MG TAB PO PRN ×2 (15:41→21:37)
[2021-06-26] MEDS: Propranolol 60 MG TAB PO SCH ×2 (17:25→23:40)
[2021-06-26] MEDS: Propylthiouracil 50 MG TAB PO SCH ×2 (18:22→23:40)
[2021-06-26] MEDS: Amoxicillin/Potassium Clav 875 MG TAB PO SCH (21:36)
[2021-06-27] MEDS: Sodium Chloride 0.9% 1,000 ML IV SCH ×3 (01:02→09:08)
[2021-06-27] MEDS ORDERED: Melatonin 3 MG TAB PO PRN (02:36)
[2021-06-27] MEDS: Propylthiouracil 50 MG TAB PO SCH ×2 (05:31→10:58)
[2021-06-27] MEDS: Hydrocortisone Sod Succ/PF 100 mg/2 ml Vial IVP SCH ×2 (05:31→15:15)
[2021-06-27] MEDS: Propranolol 60 MG TAB PO SCH ×2 (05:31→10:57)
[2021-06-27 08:55] VITALS: BMI 24.7
[2021-06-27] MEDS ORDERED: Enoxaparin Sodium 40 MG/0.4 ML SYRINGE SC SCH (09:00)
[2021-06-27 09:04] LABS: Anion Gap 12 mmol/L (10-20); BUN (Urea Nitrogen) Less than 4 mg/dL (7.0-18.7); Calc. Creatinine Clearance 171 mL/min (70-130); Calcium 8.2 mg/dL (7.8-10.44); Carbon Dioxide 21 mmol/L (22-29); Chloride 108 mmol/L (98-107); Glucose 123 mg/dL (70-105); Potassium 3.3 mmol/L (3.5-5.1); Sodium 138 mmol/L (136-145)
[2021-06-27] MEDS: Amoxicillin/Potassium Clav 875 MG TAB PO SCH (09:06)
[2021-06-27] MEDS: Acetaminophen 325 MG TAB PO PRN (09:07)
[2021-06-27 09:25] LABS: Free T4 (Free Thyroxine) 1.56 ng/dL (0.70-1.48); Thyroid Stimulating Hormone Less than 0.0025 uIU/mL (0.35-4.94)
[2021-06-27] MEDS ORDERED: Potassium Chloride 20 MEQ TAB PO SCH (10:45)
[2021-06-27 15:14] VITALS: BP 118/66; TEMP 98.5
== END 2021-06-27 17:20 | disposition home or self-care (01) | DRG 645 ==
LOC: ERS 10:12 → 2NO 13:13
PROVIDERS: ADMIT Internal Medicine; ATTEND Internal Medicine
DX: E05.91 Thyrotoxicosis, unspecified with thyrotoxic crisis or storm (principal); F41.9 Anxiety disorder, unspecified; F32.9 Major depressive disorder, single episode, unspecified; G43.909 Migraine, unspecified, not intractable, without status migrainosus; J01.90 Acute sinusitis, unspecified; Z20.822 Contact with and (suspected) exposure to COVID-19
CPT/HCPCS: 36415; 70450; 71045; 80048; 80053; 80306; 81003; 81025; 83605; 84145; 84439; 84443; 84481; 85025; 85610; 85730; 87040; 87086; 93005; 93306; 94760; 96365; 96375; J0696; J1200; J1650; J1720; J1885; J2765; J7050; U0002

== ENCOUNTER 2021-06-29 16:41 | Emergency (ER) | payer OTHER | END 2021-06-29 16:48 | disposition left against medical advice (07) | LOC: ERS 16:41 | DX: Z53.21 Procedure and treatment not carried out due to patient leaving prior to being seen by health care provider (principal) ==

== ENCOUNTER 2021-07-23 19:26 | Emergency (ER) | payer OTHER ==
[2021-07-23] MEDS ORDERED: Lorazepam 1 MG TAB ONE (20:05)
[2021-07-23 20:23] LABS: Hemoglobin 13.2 g/dL (12.0-16.0); Mean Corpuscular HGB CONC 34.8 g/dL (32.0-36.0); Mean Corpuscular Hemoglobin 31.2 pg (27.0-31.0); Mean Corpuscular Volume 89.5 fL (78.0-98.0); Mean Platelet Volume 8.4 fL (7.4-10.4); Platelet Count 246 thou/uL (130-400); Red Blood Cell (RBC) Count 4.22 mill/uL (4.20-5.40); White Blood Cell (WBC) Count 11.5 thou/uL (4.8-10.8)
[2021-07-23 20:37] LABS: ALT (SGPT) 19 U/L (8-55); AST (SGOT) 16 U/L (5-34); Albumin 3.8 g/dL (3.5-5.0); Alkaline Phosphatase 90 U/L (40-110); Anion Gap 11 mmol/L (10-20); BUN (Urea Nitrogen) 6 mg/dL (7.0-18.7); Bilirubin, Total 0.3 mg/dL (0.2-1.2); Calc. Creatinine Clearance 0 mL/min (70-130); Calcium 8.9 mg/dL (7.8-10.44); Carbon Dioxide 27 mmol/L (22-29); Chloride 105 mmol/L (98-107); Glucose 88 mg/dL (70-105); Potassium 3.8 mmol/L (3.5-5.1); Protein, Total 6.8 g/dL (6.0-8.3); Sodium 139 mmol/L (136-145)
[2021-07-23 20:52] LABS: Eosinophils 2 % (0-10); Lymphocytes 55 % (21-51); MDiff Complete? YES; Monocytes 6 % (0-10); Neutrophil 36 % (42-75); Promyelocytes 1 % (0-0)
[2021-07-23 20:55] LABS: Thyroid Stimulating Hormone Less than 0.0025 uIU/mL (0.35-4.94)
== END 2021-07-23 21:28 | disposition home or self-care (01) ==
LOC: ERS 19:26
DX: F41.9 Anxiety disorder, unspecified (principal); E05.90 Thyrotoxicosis, unspecified without thyrotoxic crisis or storm; Z79.899 Other long term (current) drug therapy
CPT/HCPCS: 36415; 80053; 84439; 84443; 84481; 84484; 85025; 93005

== ENCOUNTER 2021-08-06 10:57 | Outpatient (CLI) | payer OTHER | END 2021-08-06 10:58 | disposition home or self-care (01) | LOC: BICULT 10:57 | PROVIDERS: ATTEND Student in an Organized Health Care Education/Training Program | DX: E05.90 Thyrotoxicosis, unspecified without thyrotoxic crisis or storm (principal) | CPT/HCPCS: 76536 ==

== ENCOUNTER 2021-09-28 20:33 | Emergency (ER) | payer OTHER ==
[2021-09-28 22:15] LABS: #Basophils 0.1 thou/uL (0.0-0.2); #Eosinphils 0.3 thou/uL (0.0-0.7); #Lymphocytes 5.9 thou/uL (1.20-3.40); #Monocytes 0.4 thou/uL (0.11-0.59); #Neutrophils 6.1 thou/uL (1.40-6.50); %Basophils 0.9 % (0.0-1.0); %Eosinophils 2.1 % (0.0-10.0); %Monocytes 3.2 % (0.0-10.0); %Neutrophils 47.7 % (42.0-75.0); Hemoglobin 13.6 g/dL (12.0-16.0); Mean Corpuscular HGB CONC 33.5 g/dL (32.0-36.0); Mean Corpuscular Hemoglobin 31.7 pg (27.0-31.0); Mean Corpuscular Volume 94.5 fL (78.0-98.0); Mean Platelet Volume 8.9 fL (7.4-10.4); Platelet Count 227 thou/uL (130-400); RBC Distribution Width 12.3 % (11.5-14.5); White Blood Cell (WBC) Count 12.9 thou/uL (4.8-10.8)
[2021-09-28 22:29] LABS: ALT (SGPT) 21 U/L (8-55); AST (SGOT) 19 U/L (5-34); Alkaline Phosphatase 108 U/L (40-110); Anion Gap 13 mmol/L (10-20); BUN (Urea Nitrogen) 11 mg/dL (7.0-18.7); Bilirubin, Total 0.3 mg/dL (0.2-1.2); Calc. Creatinine Clearance 0 mL/min (70-130); Calcium 8.6 mg/dL (7.8-10.44); Carbon Dioxide 27 mmol/L (22-29); Chloride 102 mmol/L (98-107); Globulin 3.1 g/dL (2.4-3.5); Glucose 97 mg/dL (70-105); Lipase 32 U/L (8-78); Potassium 3.8 mmol/L (3.5-5.1); Protein, Total 7.1 g/dL (6.0-8.3); Sodium 138 mmol/L (136-145)
== END 2021-09-29 00:11 | disposition home or self-care (01) ==
LOC: ERS 20:33
DX: R07.81 Pleurodynia (principal)
CPT/HCPCS: 36415; 71045; 80053; 83690; 84443; 84484; 85025; 93005

== ENCOUNTER 2021-10-07 21:47 | Emergency (ER) | payer OTHER ==
[2021-10-07] MEDS ORDERED: Acetaminophen 500 MG TAB ONE (22:54)
[2021-10-07 23:25] LABS: #Eosinphils 0.1 thou/uL (0.0-0.7); #Lymphocytes 1.2 thou/uL (1.20-3.40); #Monocytes 0.7 thou/uL (0.11-0.59); #Neutrophils 3.6 thou/uL (1.40-6.50); %Basophils 0.4 % (0.0-1.0); %Eosinophils 1.9 % (0.0-10.0); %Lymphocytes 21.3 % (21.0-51.0); %Monocytes 13.1 % (0.0-10.0); %Neutrophils 63.3 % (42.0-75.0); Hemoglobin 13.2 g/dL (12.0-16.0); Mean Corpuscular Hemoglobin 31.7 pg (27.0-31.0); Mean Corpuscular Volume 93.2 fL (78.0-98.0); Mean Platelet Volume 8.3 fL (7.4-10.4); Platelet Count 215 thou/uL (130-400); RBC Distribution Width 12.2 % (11.5-14.5); Red Blood Cell (RBC) Count 4.16 mill/uL (4.20-5.40); White Blood Cell (WBC) Count 5.7 thou/uL (4.8-10.8)
[2021-10-07] MEDS ORDERED: Ondansetron PF 4 MG/2 ML Vial ONE (23:26)
[2021-10-07 23:27] LABS: Bacteria/HPF None Seen HPF (None Seen); Bilirubin Negative (Negative); Blood, Urine Trace (Negative); Clarity Clear (Clear); Glucose, Urine (Dipstick) Normal (Negative); Ketone, Urine Negative (Negative); Leukocyte Negative Leu/uL (Negative); Nitrite Negative (Negative); Pregnancy Test - Urine (BHCG) Negative (Negative); Protein, Urine (Dipstick) Negative (Neg-Trace); RBC/HPF 0-3 HPF (0-3); Specific Gravity 1.012 (1.002-1.036); Specific Gravity, Urine 1.012 (1.002-1.036); Squamous Epithelial 0-3 HPF (0-3); Urobilinogen Normal mg/dL (Less than 2); WBC/HPF 0-3 HPF (0-3)
[2021-10-07 23:28] LABS: Pregu Control Background? CLEAR/WHITE (CLR/WHITE); Pregu Control Bar Appear? YES (CONTROL BAR)
[2021-10-07 23:50] LABS: ALT (SGPT) 21 U/L (8-55); AST (SGOT) 18 U/L (5-34); Albumin 4.1 g/dL (3.5-5.0); Alkaline Phosphatase 102 U/L (40-110); Anion Gap 12 mmol/L (10-20); BUN (Urea Nitrogen) 6 mg/dL (7.0-18.7); Bilirubin, Total 0.3 mg/dL (0.2-1.2); Calc. Creatinine Clearance 0 mL/min (70-130); Calcium 8.6 mg/dL (7.8-10.44); Carbon Dioxide 25 mmol/L (22-29); Chloride 104 mmol/L (98-107); Globulin 3.2 g/dL (2.4-3.5); Glucose 105 mg/dL (70-105); Potassium 3.9 mmol/L (3.5-5.1); Protein, Total 7.3 g/dL (6.0-8.3); Sodium 137 mmol/L (136-145)
[2021-10-08 12:25] LABS: SARS-CoV-2 PCR by NAA DETECTED (NotDetected)
== END 2021-10-08 00:42 | disposition home or self-care (01) ==
LOC: ERS 21:47
DX: U07.1 COVID-19 (principal); M54.50 Low back pain, unspecified
CPT/HCPCS: 80053; 81003; 81015; 81025; 85025; 87804; 96374; J2405; U0003; U0005

== ENCOUNTER 2021-12-18 02:03 | Emergency (ER) | payer OTHER ==
[2021-12-18] MEDS ORDERED: Ondansetron ODT 4 MG TAB ONE (02:35)
== END 2021-12-18 02:39 | disposition home or self-care (01) ==
LOC: ERS 02:03
DX: R07.9 Chest pain, unspecified (principal)
CPT/HCPCS: 71045; 93005; Q0162

== ENCOUNTER 2022-04-06 07:53 | Emergency (ER) | payer OTHER ==
[2022-04-06] MEDS ORDERED: Ibuprofen 200 MG TAB ONE (08:56)
[2022-04-06] MEDS ORDERED: Boostrix 0.5 ML (Tdap) VIAL ONE (08:56)
== END 2022-04-06 09:09 | disposition home or self-care (01) ==
LOC: ERS 07:53
DX: S91.332A Puncture wound without foreign body, left foot, initial encounter (principal); W22.8XXA Striking against or struck by other objects, initial encounter
CPT/HCPCS: 90471; 90715

== ENCOUNTER 2022-10-10 00:02 | Emergency (ER) | payer OTHER | END 2022-10-10 00:41 | disposition home or self-care (01) | LOC: ERS 00:02 | DX: R07.81 Pleurodynia (principal) | CPT/HCPCS: 71045; 93005 ==

== ENCOUNTER 2022-12-22 12:14 | Emergency (ER) | payer OTHER ==
[2022-12-22 13:26] LABS: ALT (SGPT) 14 U/L (8-55); AST (SGOT) 20 U/L (5-34); Albumin 4.3 g/dL (3.5-5.0); Alkaline Phosphatase 79 U/L (40-110); Anion Gap 11 mmol/L (10-20); BUN (Urea Nitrogen) 7 mg/dL (7.0-18.7); Bilirubin, Total 0.7 mg/dL (0.2-1.2); Calc. Creatinine Clearance 0 mL/min (70-130); Calcium 8.7 mg/dL (7.8-10.44); Carbon Dioxide 25 mmol/L (22-29); Chloride 106 mmol/L (98-107); Estimated GFR 110; Glucose 94 mg/dL (70-105); Protein, Total 7.3 g/dL (6.0-8.3); Sodium 138 mmol/L (136-145)
[2022-12-22 13:59] LABS: #Basophils 0.1 thou/uL (0.0-0.2); #Eosinphils 0.2 thou/uL (0.0-0.7); #Lymphocytes 3.3 thou/uL (1.20-3.40); #Monocytes 0.3 thou/uL (0.11-0.59); #Neutrophils 3.5 thou/uL (1.40-6.50); %Basophils 1.2 % (0.0-1.0); %Eosinophils 2.6 % (0.0-10.0); %Lymphocytes 44.5 % (21.0-51.0); %Monocytes 4.6 % (0.0-10.0); %Neutrophils 47.1 % (42.0-75.0); Hemoglobin 14.1 g/dL (12.0-16.0); Mean Corpuscular HGB CONC 33.7 g/dL (32.0-36.0); Mean Corpuscular Hemoglobin 32.5 pg (27.0-31.0); Mean Corpuscular Volume 96.4 fl (78.0-98.0); Mean Platelet Volume 9.5 fL (7.4-10.4); Platelet Count 253 10x3/uL (130-400); RBC Distribution Width 11.1 % (11.5-14.5); Red Blood Cell (RBC) Count 4.33 mill/uL (4.20-5.40); White Blood Cell (WBC) Count 7.4 10x3/uL (4.8-10.8)
== END 2022-12-22 14:30 | disposition home or self-care (01) ==
LOC: ERS 12:14
DX: F41.9 Anxiety disorder, unspecified (principal); E05.01 Thyrotoxicosis with diffuse goiter with thyrotoxic crisis or storm
CPT/HCPCS: 36415; 80053; 84439; 84443; 85025; 93005

== ENCOUNTER 2023-09-24 13:39 | Emergency (ER) | payer MEDICAID, OTHER ==
[2023-09-24 14:04] LABS: #Eosinphils 0.1 thou/uL (0.0-0.7); #Monocytes 0.4 thou/uL (0.11-0.59); #Neutrophils 8.8 thou/uL (1.40-6.50); %Basophils 0.2 % (0.0-1.0); %Eosinophils 1.3 % (0.0-10.0); %Lymphocytes 14.9 % (21.0-51.0); %Monocytes 3.6 % (0.0-10.0); %Neutrophils 79.7 % (42.0-75.0); Hemoglobin 13.8 g/dL (12.0-16.0); Mean Corpuscular HGB CONC 33.7 g/dL (32.0-36.0); Mean Corpuscular Hemoglobin 31.6 pg (27.0-31.0); Mean Corpuscular Volume 93.8 fl (78.0-98.0); Platelet Count 282 10x3/uL (130-400); RBC Distribution Width 12.2 % (11.5-14.5); Red Blood Cell (RBC) Count 4.37 mill/uL (4.20-5.40)
[2023-09-24 14:30] LABS: ALT (SGPT) 11 U/L (8-55); AST (SGOT) 16 U/L (5-34); Albumin 4.3 g/dL (3.5-5.0); Alkaline Phosphatase 53 U/L (40-110); Anion Gap 13 mmol/L (10-20); BUN (Urea Nitrogen) 7 mg/dL (7.0-18.7); Bilirubin, Total 0.8 mg/dL (0.2-1.2); Calc. Creatinine Clearance 0 mL/min (70-130); Calcium 8.6 mg/dL (7.8-10.44); Carbon Dioxide 25 mmol/L (22-29); Chloride 103 mmol/L (98-107); Estimated GFR 123; Globulin 3.3 g/dL (2.4-3.5); Glucose 84 mg/dL (70-105); Potassium 3.8 mmol/L (3.5-5.1); Protein, Total 7.6 g/dL (6.0-8.3); Sodium 137 mmol/L (136-145)
[2023-09-24 14:35] LABS: Bacteria/HPF 1+ HPF (None Seen); Bilirubin Negative (Negative); Blood, Urine Negative (Negative); CAUTI Indications for Culture Acute Hematuria; Clarity Clear (Clear); Glucose, Urine (Dipstick) Normal (Negative); Ketone, Urine Negative (Negative); Leukocyte 75 Leu/uL (Negative); Nitrite Negative (Negative); Protein, Urine (Dipstick) Negative (Neg-Trace); Specific Gravity, Urine 1.019 (1.002-1.036); Urobilinogen Normal mg/dL (Less than 2); pH, Urine 6.5 (5.0-9.0)
[2023-09-24 14:36] LABS: Urine Culture Reflex No No
[2023-09-24] MEDS ORDERED: Ondansetron ODT 4 MG TAB ONE (16:19)
== END 2023-09-24 18:01 | disposition home or self-care (01) ==
LOC: ERS 13:39
DX: O20.0 Threatened abortion (principal); Z3A.08 8 weeks gestation of pregnancy
CPT/HCPCS: 36415; 76856; 80053; 81001; 84443; 84702; 85025; 86900; 86901; Q0162

== ENCOUNTER 2023-09-26 13:16 | Emergency (ER) | payer MEDICAID | END 2023-09-26 15:05 | disposition home or self-care (01) | LOC: ERS 13:16 | DX: O20.0 Threatened abortion (principal); Z3A.01 Less than 8 weeks gestation of pregnancy | CPT/HCPCS: 36415; 84702; 99284 ==

== ENCOUNTER 2025-06-12 12:49 | Emergency (ER) | payer MEDICAID, SELFPAY ==
[2025-06-12] MEDS ORDERED: Acetaminophen 500 MG TAB ONE (14:16)
== END 2025-06-12 15:13 | disposition home or self-care (01) ==
LOC: ERS 12:49
DX: M54.2 Cervicalgia (principal); H92.03 Otalgia, bilateral
CPT/HCPCS: 99282